=== PATIENT | female | born 1995 | race Caucasian/White ===

== ENCOUNTER 2023-08-09 13:12 | Day surgery (SDC) | payer OTHER, SELFPAY ==
[2023-08-09 13:52] VITALS: BMI 34.0
[2023-08-09 13:56] LABS: Fetal Membranes Rupture No Membranes Rupture (No Rupture)
[2023-08-09] MEDS ORDERED: hydrALAZINE 20 MG/ML VIAL SLOW IVP PRN (14:01)
== END 2023-08-09 16:41 | disposition home or self-care (01) ==
LOC: CSHLD/OP 13:12
PROVIDERS: ATTEND Family Medicine
DX: O47.1 False labor at or after 37 completed weeks of gestation (principal); O24.415 Gestational diabetes mellitus in pregnancy, controlled by oral hypoglycemic drugs; Z3A.37 37 weeks gestation of pregnancy; Z79.84 Long term (current) use of oral hypoglycemic drugs; Z88.5 Allergy status to narcotic agent; Z88.6 Allergy status to analgesic agent; Z88.0 Allergy status to penicillin; Z91.040 Latex allergy status; Z90.89 Acquired absence of other organs
CPT/HCPCS: 84112; 87480; 87510; 87660

== ENCOUNTER 2023-08-14 05:32 | Inpatient (IN) | payer SELFPAY ==
[2023-08-14 06:06] VITALS: BMI 32.1
[2023-08-14] MEDS ORDERED: Penicillin G Potassium 5 MILL.UNITS VIAL ONE (07:29)
[2023-08-14] MEDS ORDERED: Acetaminophen 500 MG TAB PO PRN ×2 (07:35→20:10)
[2023-08-14] MEDS ORDERED: fentaNYL 50 mcg/mL 1 mL Vial SLOW IVP PRN (07:35)
[2023-08-14] MEDS ORDERED: Lidocaine 1% (PF) 30 ML VIAL SC PRN (07:35)
[2023-08-14] MEDS ORDERED: Promethazine HCl 25 MG/ML VIAL IM PRN (07:35)
[2023-08-14] MEDS ORDERED: Ondansetron PF 4 MG/2 ML Vial IVP PRN (07:35)
[2023-08-14] MEDS ORDERED: hydrALAZINE 20 MG/ML VIAL SLOW IVP PRN ×2 (07:35→09:09)
[2023-08-14] MEDS ORDERED: Oxytocin 30 units/NS 500 ML 500 ML IV SCH (07:45)
[2023-08-14 08:13] LABS: Hematocrit 36.1 % (34.9-44.5); Hemoglobin 11.6 g/dL (12.0-15.5); Mean Corpuscular HGB CONC 32.1 g/dL (32.0-36.0); Mean Corpuscular Hemoglobin 23.7 pg (27.0-33.0); Mean Corpuscular Volume 73.7 fl (81.6-98.3); Mean Platelet Volume 8.8 fl (7.4-10.4); Platelet Count 492 10x3/uL (150-450); White Blood Cell (WBC) Count 12.2 10x3/uL (3.5-10.5)
[2023-08-14 08:34] LABS: Syphilis Antibody Nonreactive (Nonreactive); Syphilis Antibody Index 0.07 S/CO (<1.00 Non-Reactive)
[2023-08-14 08:36] LABS: HBSAg Index 0.17 S/CO (0-0.99); Hep B Surf Ag - L&D Non-Reactive S/CO (NonReactive)
[2023-08-14 08:43] LABS: Glucose 89 mg/dL (70-105)
[2023-08-14 08:43] LABS: HIV (1/2) Antibody/Antigen Non-Reactive (NonReactive); HIV 1/2 INDEX 0.09 S/CO (<1.00)
[2023-08-14] MEDS ORDERED: Methylergonovine 0.2 MG/ML VIAL IM PRN (09:09)
[2023-08-14] MEDS ORDERED: Misoprostol 200 MCG TAB VAG PRN (09:09)
[2023-08-14] MEDS ORDERED: Lanolin Ointment 7 GM TUBE TOP PRN (09:09)
[2023-08-14] MEDS ORDERED: Milk Of Magnesia 30 ML UDCUP PO PRN (09:09)
[2023-08-14] MEDS ORDERED: Boostrix 0.5 ML (Tdap) VIAL (>/=7 yrs of age) IM ONE (09:09)
[2023-08-14] MEDS ORDERED: Benzocaine-Menthol 82.5 ML CAN TOP PRN (09:09)
[2023-08-14] MEDS ORDERED: Bisacodyl 10 MG SUPP PR PRN (09:09)
[2023-08-14] MEDS ORDERED: Oxytocin 30 units/NS 500 ML 500 ML ONE (10:23)
[2023-08-14] MEDS: Ferrous Sulfate 325 MG TAB PO SCH (12:03)
[2023-08-14] MEDS: Docusate 100 MG CAP PO SCH (21:24)
[2023-08-15 03:56] VITALS: BP 121/87; TEMP 98.4
[2023-08-15] MEDS ORDERED: Prenatal Vitamin 1 TAB PO SCH (09:00)
[2023-08-15] MEDS: Docusate 100 MG CAP PO SCH (09:30)
[2023-08-15] MEDS: Ferrous Sulfate 325 MG TAB PO SCH (09:31)
== END 2023-08-15 11:56 | disposition home or self-care (01) | DRG 807 ==
LOC: CSHLD/OP 05:32 → CSHLD 09:17 → CSHPP 11:45
PROVIDERS: ADMIT Family Medicine; ATTEND Family Medicine
PROC: 10E0XZZ Delivery of Products of Conception, External Approach (ICD-10-PCS; principal; 2023-08-14)
DX: O24.420 Gestational diabetes mellitus in childbirth, diet controlled (principal); Z37.0 Single live birth; O62.3 Precipitate labor; Z3A.38 38 weeks gestation of pregnancy; Z88.2 Allergy status to sulfonamides; Z88.0 Allergy status to penicillin; Z88.5 Allergy status to narcotic agent; Z88.6 Allergy status to analgesic agent; Z91.040 Latex allergy status
CPT/HCPCS: 36415; 82947; 85027; 86762; 86780; 86850; 86900; 86901; 87340; 87389; 99285; J2001; J2405; J2540; J2590